=== PATIENT | male | born 1960 | race Hispanic/Latino ===

== ENCOUNTER 2023-09-05 09:30 | Outpatient (RCR) | payer MEDICARE | END 2023-09-26 | LOC: ST 09:30 | PROVIDERS: ATTEND Psychiatry & Neurology Clinical Neurophysiology | DX: R47.01 Aphasia (principal) | CPT/HCPCS: 92523 ==

== ENCOUNTER → 2024-10-07 | Outpatient (REF) | payer MEDICARE | LOC: CARD 12:38 | PROVIDERS: ATTEND Internal Medicine | DX: I69.30 Unspecified sequelae of cerebral infarction (principal) | CPT/HCPCS: 93880 ==

== ENCOUNTER → 2024-12-04 | Outpatient (REF) | payer MEDICARE | LOC: CARD 10:41 | PROVIDERS: ATTEND Nurse Practitioner Gerontology | DX: L97.519 Non-pressure chronic ulcer of other part of right foot with unspecified severity (principal) | CPT/HCPCS: 93925 ==